=== PATIENT | male | born 1975 | race Caucasian/White ===

== ENCOUNTER → 2023-01-08 | Outpatient (CLI) | payer OTHER ==
--- NOTE | 2023-01-08 10:01 | US ---
EXAMINATION TYPE: US abdomen complete DATE OF EXAM: 01/08/2023 COMPARISON: NONE CLINICAL INDICATION: Male, 47 years old with history of R19.7 DIARRHEA, UNSPECIFIED; TECHNIQUE: Multiple sonographic images of the abdomen are obtained. FINDINGS: EXAM MEASUREMENTS: Liver Length: 11.5 cm Gallbladder Wall: 0.2 cm CBD: 0.4 cm Spleen: 9.2 cm Right Kidney: 10.9 x 6.9 x 5.5 cm Left Kidney: 11.2 x 5.6 x 6.9 cm [employer]OTECTION MANAGER NOTES: Pancreas: visualized portions wnl Liver: wnl Gallbladder: No stones seen Evidence for sonographic Rosen's sign: No CBD: wnl Spleen: wnl Right Kidney: No hydronephrosis or masses seen Left Kidney: No hydronephrosis or masses seen Upper IVC: wnl Abd Aorta: wnl The liver is homogenous. The intrahepatic portion of the IVC and proximal abdominal aorta are within normal limits. There is no evidence of cholelithiasis. Common bile duct is unremarkable. The visu alized portions of the pancreas are homogenous. The spleen is unremarkable. Kidneys are symmetric a nd free of hydronephrosis. No renal lesions are seen. IMPRESSION: Negative
== END | disposition home or self-care (01) ==
LOC: RADUSWWP 08:10
DX: R19.7 Diarrhea, unspecified (principal)
CPT/HCPCS: 76700

== ENCOUNTER 2024-12-24 19:25 | Emergency (ER) | payer OTHER ==
[2024-12-24 19:50] VITALS: TEMP 98.7
--- NOTE | 2024-12-24 20:16 | ED ---
Dizziness HPI - General Chief Complaint: Dizziness Stated Complaint: lightheaded Time Seen by Provider: 12/24/24 20:03 Source: patient, RN notes reviewed, old records reviewed Mode of arrival: ambulatory Limitations: no limitations - History of Present Illness Initial Comments: This is a 49-year-old male to the ER today he presents for evaluation of diz ziness feels like he may be having CVA with history of carotid artery blockage as well as hole in his heart. MD Complaint: dizziness, lightheadedness -: hour(s) (12) Timing: sudden onset, intermittent Description: sense of movement, "room spinning" History of Same: No History of Trauma: No Severity: moderate Improves With: remaining still Worsens With: movement Associated Symptoms: denies other symptoms - Related Data Allergies Allergy/AdvReac Type Severity Reaction Status Date / Time rofecoxib [From Vioxx] AdvReac Chest Pain Verified 12/24/24 19:51 Review of Systems ROS Statement: Those systems with pertinent positive or pertinent negative responses have been documented in the HPI. ROS Other: All systems not noted in ROS Statement are negative. General Exam Limitations: no limitations General appearance: alert, in no apparent distress Head exam: Present: atraumatic, normocephalic, normal inspection Eye exam: Present: normal appearance, PERRL, EOMI. Absent: scleral icterus, conjunctival injection, periorbital swelling ENT exam: Present: normal exam, mucous membranes moist Neck exam: Present: normal inspection. Absent: tenderness, meningismus, lympha denopathy Respiratory exam: Present: normal lung sounds bilaterally. Absent: respiratory distress, wheezes, rales, rhonchi, stridor Cardiovascular Exam: Present: regular rate, normal rhythm, normal heart sounds. Absent: systolic murmur, diastolic murmur, rubs, gallop, clicks GI/Abdominal exam: Present: soft, normal bowel sounds. Absent: distended, tenderness, guarding, rebound, rigid Extremities exam: Present: normal inspection, full ROM, normal capillary refill. Absent: tenderness, pedal edema, joint swelling, calf tenderness Back exam: Present: normal inspection Neurological exam: Present: alert, oriented X3, CN II-XII intact Psychiatric exam: Present: normal affect, normal mood Skin exam: Present: warm, dry, intact, normal color. Absent: rash Course Vital Signs 12/24/24 12/24/24 12/24/24 19:45 20:49 21:34 Temperature 98.7 F 98.6 F 98.7 F Pulse Rate 84 66 68 Respiratory 18 18 181 H Rate Blood Pressure 131/87 128/91 132/82 O2 Sat by Pulse 98 100 100 Oximetry - Reevaluation(s) Reevaluation #1: 12/24/24 21:29 Medical records reviewed Reevaluation #4: Was pt. sent in by a medical professional or institution (, GALILEA, SENIOR MILITARY ANALYST, urgent care, hospital, or usp...) When possible be specific @ -no Did you speak to anyone other than the patient for history (EMS, parent, family, police, friend...)? What history was obtained from this source @ -no Did you review nursing and triage notes (agree or disagree)? Why? @ -agree Are old charts reviewed (outside hosp., previous admission, EMS record, old EKG, old radiological studies, urgent care reports/EKG's, usp records)? Report findings @ -yes Differential Diagnosis (chest pain, altered mental status, abdominal pain women, abdominal pain men, vaginal bleeding, weakness, fever, dyspnea, syncope, headache, dizziness, GI bleed, back pain, seizure, CVA, palpatations, mental h ealth, musculoskeletal)? @ -prior EKG interpreted by me (3pts min.). @ -yes X-rays interpreted by me (1pt min.). @ -yes negative for acute disease CT interpreted by me (1pt min.). @ -no U/S interpreted by me (1pt. min.). @ -no What testing was considered but not performed or refused? (CT, X-rays, U/S, labs)? Why? @ -none What meds were considered but not given or refused? Why? @ -none Did you discuss the management of the patient with other professionals (professionals i.e. GALILEA Galvez, SENIOR MILITARY ANALYST, lab, RT, psych nurse, social media assistant, sample maker, teacher, senior escrow officer, family service caseworker)? Give summary @ -no Was smoking cessation discussed for >3mins.? @ -no Was critical care preformed (if so, how long)? @ -no Were there social determinants of health that impacted care today? How? (Homelessness, low income, unemployed, alcoholism, drug addiction, transportation, low edu. Level, literacy, decrease access to med. care, longterm, rehab)? @ -none Was there de-escalation of care discussed even if they declined (Discuss DNR or withdrawal of care, Hospice)? DNR status @ -no What co-morbidities impacted this encounter? (DM, HTN, Smoking, COPD, CAD, Cancer, CVA, ARF, Chemo, Hep., AIDS, mental health diagnosis, sleep apnea, morbid obesity)? @ -none Was patient admitted / discharged? Hospital course, mention meds given and route, prescriptions, significant lab abnormalities, going to OR and other p ertinent info. @ - Undiagnosed new problem with uncertain prognosis? @ -no Drug Therapy requiring intensive monitoring for toxicity (Heparin, Nitro, Insulin, Cardizem)? @ -no Were any procedures done? @ -no Diagnosis/symptom? @ - Acute, or Chronic, or Acute on Chronic? @ -Acute Uncomplicated (without systemic symptoms) or Complicated (systemic symptoms)? @ -Complicated Side effects of treatment? @ -no Exacerbation, Progression, or Severe Exacerbation? @ -exacerbation Poses a threat to life or bodily function? How? (Chest pain, [place], [place], pneumonia, PE, COPD, DKA, ARF, appy, cholecystitis, CVA, Diverticulitis, Homicidal, Suicidal, threat to staff... and all critical care pts) @ -yes Reevaluation #5: Differential Dizziness: Benign paroxysmal positional Vertigo, Meniere's disease, otitis media, acoustic neuroma, vertebrobasilar insufficiency, cerebellar stroke, encephalitis, hypovolemic, arrhythmia, coronary artery syndrome, anemia, this is not meant to be an all-inclusive list EKG Findings - EKG Comments: EKG Findings:: EKG is sinus 76 MS 130 QRS 122 QTc 378 - EKG Results: EKG: interpreted by WILBERT Medical Decision Making - Lab Data Result diagrams: 12/24/24 20:04 12/24/24 20:04 Lab Results 12/24/24 12/24/24 12/24/24 Range/Units 20:04 20:04 20:04 WBC 10.19 H (4.50-10.00) 10*3/uL RBC 5.02 (4.40-5.60) 10*6/uL Hgb 15.6 (13.0-17.0) g/dL Hct 44.3 (39.6-50.0) % MCV 88.2 (80.0-97.0) fL MCH 31.1 (27.0-32.0) pg MCHC 35.2 (32.0-37.0) g/dL Plt Count 206 (140-440) 10*3/uL MPV 11.0 (9.5-12.2) fL Immature Gran % (Auto) 0.3 % Neutrophils % 52.3 % Lymphocytes % 30.5 % Monocytes % 11.0 % Eosinophils % 5.0 % Basophils % 0.9 % Immature Gran # 0.03 (0.00-0.04) 10*3/uL Neutrophils # 5.33 (1.80-7.70) 10*3/uL Lymphocytes # 3.11 (0.90-5.00) 10*3/uL Monocytes # 1.12 H (0.20-1.00) 10*3/uL Eosinophils # 0.51 H (0.04-0.35) 10*3/uL Basophils # 0.09 (0.00-0.10) 10*3/uL PT 11.1 (10.0-12.5) sec INR 1.0 (<1.2) APTT 25.0 (22.0-30.0) sec Sodium 138 (137-145) mmol/L Potassium 3.8 (3.5-5.1) mmol/L Chloride 106 (98-107) mmol/L Carbon Dioxide 24 (22-30) mmol/L Anion Gap 8 mmol/L BUN 11 (9-20) mg/dL Creatinine 0.83 (0.66-1.25) mg/dL Est GFR (CKD-EPI)AfAm >90 (>60 ml/min/1.73 sqM) Est GFR (CKD-EPI)NonAf >90 (>60 ml/min/1.73 sqM) Glucose 87 (74-99) mg/dL Calcium 9.3 (8.4-10.2) mg/dL Total Bilirubin 0.6 (0.2-1.3) mg/dL AST 29 (17-59) U/L ALT 33 (4-49) U/L Alkaline Phosphatase 87 (38-126) U/L Creatine Kinase 126 (55-170) U/L Troponin I (0.000-0.034) ng/mL Total Protein 6.4 (6.3-8.2) g/dL Albumin 3.7 (3.5-5.0) g/dL /03/12 Range/Units 20:04 WBC (4.50-10.00) 10*3/uL RBC (4.40-5.60) 10*6/uL Hgb (13.0-17.0) g/dL Hct (39.6-50.0) % MCV (80.0-97.0) fL MCH (27.0-32.0) pg MCHC (32.0-37.0) g/dL Plt Count (140-440) 10*3/uL MPV (9.5-12.2) fL Immature Gran % (Auto) % Neutrophils % % Lymphocytes % % Monocytes % % Eosinophils % % Basophils % % Immature Gran # (0.00-0.04) 10*3/uL Neutrophils # (1.80-7.70) 10*3/uL Lymphocytes # (0.90-5.00) 10*3/uL Monocytes # (0.20-1.00) 10*3/uL Eosinophils # (0.04-0.35) 10*3/uL Basophils # (0.00-0.10) 10*3/uL PT (10.0-12.5) sec INR (<1.2) APTT (22.0-30.0) sec Sodium (137-145) mmol/L Potassium (3.5-5.1) mmol/L Chloride (98-107) mmol/L Carbon Dioxide (22-30) mmol/L Anion Gap mmol/L BUN (9-20) mg/dL Creatinine (0.66-1.25) mg/dL Est GFR (CKD-EPI)AfAm (>60 ml/min/1.73 sqM) Est GFR (CKD-EPI)NonAf (>60 ml/min/1.73 sqM) Glucose (74-99) mg/dL Calcium (8.4-10.2) mg/dL Total Bilirubin (0.2-1.3) mg/dL AST (17-59) U/L ALT (4-49) U/L Alkaline Phosphatase (38-126) U/L Creatine Kinase (55-170) U/L Troponin I <0.012 (0.000-0.034) ng/mL Total Protein (6.3-8.2) g/dL Albumin (3.5-5.0) g/dL - Radiology Data Radiology results: report reviewed (CT brain CT angio head neck positive for 100% left ICA blockage, old occipital lobe infarct), image reviewed Disposition Clinical Impression: Dizziness Narrative: Old CVA Disposition: HOME SELF-CARE Condition: Fair Instructions (If sedation given, give patient instructions): Dizziness (ED) Is patient prescribed a controlled substance at d/c from ED?: No Referrals: Josh Naranjo DO [Primary Care Provider] - 1-2 days Time of Disposition: 22:20
[2024-12-24 20:49] LABS: Basophils # (A) 0.09 10*3/uL (0.00-0.10); Basophils % (A) 0.9 %; Eosinophils # (A) 0.51 10*3/uL (0.04-0.35); HCT 44.3 % (39.6-50.0); HGB 15.6 g/dL (13.0-17.0); Lymphocytes # (A) 3.11 10*3/uL (0.90-5.00); Lymphocytes % (A) 30.5 %; MCH 31.1 pg (27.0-32.0); MCHC 35.2 g/dL (32.0-37.0); MCV 88.2 fL (80.0-97.0); Monocytes # (A) 1.12 10*3/uL (0.20-1.00); Neutrophils # (A) 5.33 10*3/uL (1.80-7.70); Neutrophils % (A) 52.3 %; Platelet Count 206 10*3/uL (140-440); RBC 5.02 10*6/uL (4.40-5.60); WBC 10.19 10*3/uL (4.50-10.00)
[2024-12-24] MEDS: ONDANSETRON 4 MG/2 ML VIAL IVP STA (20:56)
[2024-12-24] MEDS: SODIUM CHLORIDE 0.9% 1,000 ML IV STA (20:56)
[2024-12-24 20:58] LABS: Prothrombin Time 11.1 sec (10.0-12.5)
[2024-12-24 21:14] LABS: ALT 33 U/L (4-49); AST 29 U/L (17-59); African American GFR (CKD) >90 (>60 ml/min/1.73 sqM); Albumin 3.7 g/dL (3.5-5.0); Alkaline Phosphatase 87 U/L (38-126); Anion Gap 8 mmol/L; Blood Urea Nitrogen 11 mg/dL (9-20); Calcium 9.3 mg/dL (8.4-10.2); Carbon Dioxide 24 mmol/L (22-30); Chloride 106 mmol/L (98-107); Creatine Kinase 126 U/L (55-170); Glucose 87 mg/dL (74-99); Non-African American GFR(CKD) >90 (>60 ml/min/1.73 sqM); Potassium 3.8 mmol/L (3.5-5.1); Sodium 138 mmol/L (137-145); Total Bilirubin 0.6 mg/dL (0.2-1.3); Total Protein 6.4 g/dL (6.3-8.2)
--- NOTE | 2024-12-24 21:23 | CT ---
EXAMINATION TYPE: CT brain wo con DATE OF EXAM: 12/24/2024 9:04 PM COMPARISON: None. CLINICAL INDICATION: Male, 49 years old with history of Neuro deficit, acute, stroke suspected, dizzi ness, history of left carotid stenosis TECHNIQUE: CT of the brain is performed utilizing 3 mm thick sections through the posterior fossa and 3 mm thick sections through the remaining calvarium. Study is performed within 24 hours of arrival to the hospital. Contrast used: mL of , (none if empty) CT DLP: combined 1737.7 mGycm, Automated exposure control for dose reduction was used. FINDINGS: No abnormal hyperdensity is present to suggest an acute intracranial hemorrhage. No mass lesion is evident. No acute infarcts are evident. There is hypodensity through the left occipital lobe. Ex vacuo effect on adjacent sulci. Old left occipital lobe infarct may be present. Ventricles and sulci are otherwise appropriate for the patient age. There is a retention cyst within the left maxillary sinus. Because thickening is through ethmoid air cells. Remaining paranasal sinuses and mastoid air cells are clear IMPRESSION: 1. No acute intracranial process. Follow up MRI can be performed as clinically indicated. 2. 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 3. Mucosal thickening within left maxillary and ethmoid air cells [facility], , 12/24/2024 9:21 PM
--- NOTE | 2024-12-24 21:52 | CT ---
EXAMINATION TYPE: CT angio head neck DATE OF EXAM: 12/24/2024 9:17 PM COMPARISON: None. CLINICAL INDICATION: Male, 49 years old with history of Neuro deficit, acute, stroke suspected, dizzi ness, history of left carotid stenosis TECHNIQUE: CTA scan is performed with axial images are obtained, coronal and sagittal reformatted jessy ges are reviewed. MIP images created on a separate workstation and submitted for review. 3-D reconstr ucted images are created on an independent workstation and reviewed. Source images are reviewed. WALI CET criteria was used in interpretation of this exam? Contrast used:65 mL of Isovue 370 without and with IV Contrast, (none if empty) Oral contrast used: (none if empty) CT DLP: combined 1737.7 mGycm, Automated exposure control for dose reduction was used. FINDINGS: Carotid/Vascular Structures: There is a 3 vessel arch. Right common carotid artery bifurcates into internal and external carotid arteries. The left carotid bifurcation has an obstructed proximal left internal carotid artery. This extends from the bifurcatio n to the [place]. Retrograde flow is not identified. Vertebral arteries are codominant. Cervical of [place]: Vertebral basilar system appears normal. Posterior cerebral vasculature is unrema rkable. Right Internal carotid artery bifurcates normally into A1 and M1 segments. Left internal [place] artery is not identified intracranially. A2 segments are normal. The anterior communicating artery is patent. The right posterior communicating artery is patent. The left posterior communicating artery is patent. IMPRESSION: 1. Obstruction of the left internal carotid artery at its origin. No reconstitution or retrograde stephon w is identified. 2. Normal [place] [facility], , 12/24/2024 9:49 PM
[2024-12-24 22:30] VITALS: BP 128/76; PULSE 80; RESP 18
== END 2024-12-24 22:30 | disposition home or self-care (01) ==
LOC: EC 19:25
DX: R42 Dizziness and giddiness (principal); Z88.8 Allergy status to other drugs, medicaments and biological substances
CPT/HCPCS: 36415; 93005; 80053; 82550; 84484; 85025; 85610; 85730; 70496; 70450; 70498; 99284; 96374; 96361; J2405; Q9967